=== PATIENT | female | born 1965 | race Asian ===

== ENCOUNTER 2017-02-27 08:27 | Outpatient (CLI) | payer OTHER ==
--- NOTE | 2017-02-27 10:27 | Mammography Report ---
BILATERAL MAMMOGRAM with CAD: HISTORY:Patient screening. Comparison study is dated April 09, 2014. FINDINGS: The breasts are almost entirely fat (<25% glandular). No mass, distortion, suspicious calcification, or skin change is seen. IMPRESSION: Negative mammogram. There is no mammographic evidence of malignancy. RECOMMENDATION: Follow-up per ACS guidelines. BI-RADS CATEGORY: 1 = Negative ACR BI-RADS MAMMOGRAPHIC CODES: 0 = Needs additional imaging evaluation; 1 = Negative; 2 = Benign; 3 = Probably benign; 4 = Suspicious; 5 = Malignant; 6 = Known biopsy-proven malignancy COMMENT: 1. Dense breast tissue, i.e., adenosis, fibrocystic changes, etc., may obscure an underlying neoplasm. 2. Approximately 10% of cancers are not detected with mammography. 3. A negative mammography report should not delay biopsy if a clinically suspicious mass is present. COMMENT: Patient follow-up letters are generated in [employer].
== END 2017-02-27 08:28 | disposition home or self-care (01) ==
LOC: SPVWC 08:27
PROVIDERS: ATTEND Obstetrics & Gynecology
DX: Z12.31 Encounter for screening mammogram for malignant neoplasm of breast (principal)
CPT/HCPCS: 77067; G0202

== ENCOUNTER 2017-05-03 11:15 | Outpatient (CLI) | payer OTHER ==
--- NOTE | 2017-05-03 13:56 | Ultrasound Report ---
ULTRASOUND BLADDER RESIDUAL: 05/03/17 CLINICAL: Bladder tenderness. FINDINGS: Ultrasound demonstrated a pre-void urinary bladder volume of 274.81 cc and a postvoid residual bladder volume of 21.39cc. Normal bladder contour and wall thickness. No mass or calculus. IMPRESSION: Normal urinary bladder with minimal residual postvoid urine volume.
== END 2017-05-03 11:16 | disposition home or self-care (01) ==
LOC: SPVWC 11:15
PROVIDERS: ATTEND Family Medicine
DX: R39.89 Other symptoms and signs involving the genitourinary system (principal)
CPT/HCPCS: 76857

== ENCOUNTER 2018-02-06 09:34 | Outpatient (CLI) | payer OTHER ==
--- NOTE | 2018-02-06 13:52 | Mammography Report ---
BONE DEXA:02/06/18 09:34:00 CLINICAL: Postmenopausal. No comparison. TECHNIQUE: Two site bone DEXA performed on an Hologic scanner. FINDINGS: The average BMD of the lumbar spine L1-L4 is 1.033g/cm squared with a T-score of -1.1 and a Z-score of 0. The average BMD of the left hip is 0.993g/cm squared with a T-score of -0.2 and a Z-score of +0.2. IMPRESSION: WHO classification: Osteopenia with increased fracture risk based on of spine and left hip measurements. RECOMMENDATION: Clinical correlation and routine screening. DEFINITIONS: BMD = Bone Mineral Density T-score = BMD related to mean peak bone mass of young adult (mean expressed in Standard Deviation) Z-score = Age matched BMD expressed in SD World Health Organization (WHO) Diagnostic Criteria Normal T-score > -1 SD Osteopenia T-score between -1 and -2.4 SD Osteoporosis T-score -2.5 SD or below NOTE: BMD is not the only risk factor for fracture. One should also consider factors such as the patient's age, risk of falling, previous osteoporotic fracture, family history of osteoporotic fractures, current smoker, and low body weight. Z-scores are not calculated if >80 years of age.
--- NOTE | 2018-02-06 15:50 | Ultrasound Report ---
ULTRASOUND RIGHT LOWER BACK AND UPPER POSTERIOR ABDOMINAL WALL: 02/06/18 CLINICAL: Soft tissue mass. FINDINGS: High resolution ultrasound of the right lower back and upper posterior abdominal wall demonstrated normal structures with no identifiable mass or cyst. No fluid collection. IMPRESSION: Negative study. Recommend management based on clinical findings.
== END 2018-02-06 09:35 | disposition home or self-care (01) ==
LOC: SPVWC 09:34
PROVIDERS: ATTEND Family Medicine
DX: M85.88 Other specified disorders of bone density and structure, other site (principal); R22.2 Localized swelling, mass and lump, trunk; Z78.0 Asymptomatic menopausal state
CPT/HCPCS: 76604; 76705; 77080

== ENCOUNTER 2018-06-13 06:37 | Day surgery (SDC) | payer OTHER ==
[2018-06-13] MEDS ORDERED: WATER FOR IRRIG STERILE IR ONE (07:18)
[2018-06-13] MEDS ORDERED: NACL 0.9% 1000 ML 1,000 ML IV SCH (08:00)
--- NOTE | 2018-06-13 08:20 | Anesthesia Day of Surgery ---
Anesthesia Day of Surgery - Day of Surgery Patient Examined: Yes Patient H&P Reviewed: Yes Patient is NPO: Yes Beta Blockers: No
--- NOTE | 2018-06-13 08:22 | Anesthesia Consultation ---
Anesthesia Consult and Med Hx - Airway Anesthetic Teeth Evaluation: Good ROM Head & Neck: Adequate Mental/Hyoid Distance: Adequate Mallampati Class: Class III Intubation Access Assessment: Good - Pulmonary Exam CTA: Yes - Cardiac Exam Cardiac Exam: RRR (murmur present) - Pre-Operative Health Status ASA Pre-Surgery Classification: ASA3 Proposed Anesthetic Plan: MAC - Pulmonary Hx Smoking: Yes Hx Asthma: Yes Hx Respiratory Symptoms: No SOB: Yes (ON EXERTION) COPD: No Home Oxygen Therapy: No Hx Pneumonia: Yes (HX) Hx Sleep Apnea: No - Cardiovascular System Hx Hypertension: Yes Hx Coronary Artery Disease: No Hx Heart Attack/AMI: No Hx Angina: No Hx Percutaneous Transluminal Coronary Angioplasty (PTCA): No Hx Cardia Arrhythmia: No Hx Pacemaker: No Hx Internal Defibrillator: No Hx Valvular Heart Disease: No Hx Heart Murmur: Yes - Central Nervous System Hx Neuromuscular Disorder: No Hx Seizures: No CVA: No Hx Back Pain: No Hx Psychiatric Problems: No - Gastrointestinal Hx Ulcer: No Hx Gastroesophageal Reflux Disease: No - Endocrine Hx Cirrhosis: No Hx Liver Disease: No Hx Insulin Dependent Diabetes: No Hx Non-Insulin Dependent Diabetes: Yes (prediabetic ) Hx Hypothyroidism: Yes - Hematic Hx Anemia: No Hx Sickle Cell Disease: No - Other Systems Hx Alcohol Use: No Hx Substance Use: No Hx Cancer: No Hx Obesity: Yes
[2018-06-13] MEDS ORDERED: VERSED ONE (09:11)
[2018-06-13] MEDS ORDERED: DIPRIVAN 10 MG/ML IV ONE ×2 (09:11→09:28)
[2018-06-13] MEDS ORDERED: XYLOCAINE 2% INFILTRATI ONE (09:12)
--- NOTE | 2018-06-13 09:52 | Short Stay Summary ---
Short Stay Documentation - Allergies and Medications Current Medications: Allergies latex Allergy (Intermediate, Verified 06/12/18 11:11) Unknown Sulfa (Sulfonamide Antibiotics) Allergy (Intermediate, Verified 06/12/18 11:11) Unknown Home Medications Medication Instructions Recorded Confirmed Last Taken Type Bentyl 10 mg PO DAILY 06/12/18 06/12/18 06/12/18 History Felodipine ER 10 mg PO DAILY 06/12/18 06/12/18 06/12/18 History Losartan 100 mg PO DAILY 06/12/18 06/13/18 06/13/18 History Omeprazole 20 mg PO DAILY 06/12/18 06/12/18 06/12/18 History Clonidine 0.2 mg PO DAILY 06/13/18 06/13/18 06/12/18 History Active Medications Sodium Chloride (Nacl 0.9% 1000 Ml) 1,000 mls @ 50 mls/hr IV DIRECT ABBI Last Admin: 06/13/18 08:30 Dose: 50 mls/hr - Brief post op/procedure progress note Date of procedure: 06/13/18 Pre-op diagnosis: Colon cancer screening Post-op diagnosis: same (1. Diverticulosis coli 2. Internal hemorrhoids 3. Colon polyp) Procedure: Colonioscopy with cold biopsy polypectomy Anesthesia: MAC Findings: as above Surgeon: JOSE MATOS Estimated blood loss: none Pathology: list (Transverse colon polyp) Specimen disposition: to lab Condition: stable - Disposition Condition at discharge: Stable Disposition: [id number] TO HOME OR SELFCARE Short Stay Discharge Plan Follow up with: KADI LARSON MD [Primary Care Provider] - 7 Days
[2018-06-13 10:12] VITALS: BP 132/82
== END 2018-06-13 06:38 | disposition home or self-care (01) ==
LOC: GIO 06:37
PROVIDERS: ATTEND Internal Medicine Gastroenterology
DX: D12.3 Benign neoplasm of transverse colon (principal); K57.30 Diverticulosis of large intestine without perforation or abscess without bleeding; K64.8 Other hemorrhoids; K59.00 Constipation, unspecified; R14.0 Abdominal distension (gaseous); I10 Essential (primary) hypertension; E78.00 Pure hypercholesterolemia, unspecified; J45.909 Unspecified asthma, uncomplicated; K21.9 Gastro-esophageal reflux disease without esophagitis; E11.9 Type 2 diabetes mellitus without complications; E03.9 Hypothyroidism, unspecified; E66.9 Obesity, unspecified; Z68.36 Body mass index [BMI] 36.0-36.9, adult; Z87.891 Personal history of nicotine dependence; Z88.2 Allergy status to sulfonamides; Z91.040 Latex allergy status; Z79.899 Other long term (current) drug therapy; Z98.51 Tubal ligation status; Z98.891 History of uterine scar from previous surgery; Z90.710 Acquired absence of both cervix and uterus
CPT/HCPCS: 45380; 82962; 88305; J2250; J2704; J7030